=== PATIENT | male | born 1955 | race Caucasian/White ===

== ENCOUNTER 2019-04-20 06:04 | Day surgery (SDC) | payer BC ==
[2019-04-20] MEDS ORDERED: fentaNYL 100 MCG/2 ML SDV ONE (07:00)
[2019-04-20] MEDS ORDERED: Midazolam 1 MG/ML 2 ML SDV ONE (07:00)
[2019-04-20] MEDS ORDERED: Propofol 200 MG/20 ML SDV ONE (07:00)
[2019-04-20] MEDS: Dextrose 5%-Lactated Ringers 1,000 ML IV SCH (07:04)
[2019-04-20] MEDS: Pantoprazole 40 MG Vial IVPUSH ONE (07:49)
[2019-04-20 09:22] VITALS: BP 123/77
--- NOTE | 2019-04-26 14:05 | OR ---
DATE OF PROCEDURE: 04/20/2019 PREOPERATIVE DIAGNOSIS: Recurrent gastroesophageal reflux disease symptoms, status post previous Ramirez fundoplication. POSTOPERATIVE DIAGNOSES: 1. Recurrent hiatal hernia (4 cm) associated with recurrent gastroesophageal reflux disease. 2. Mild antral gastritis. OPERATIVE PROCEDURES: Esophagogastroduodenoscopy with, 1. Biopsies of esophagogastric junction for histologic evaluation. 2. Biopsies of antrum for CLOtest. ANESTHESIA: IV sedation. INDICATION FOR PROCEDURE: This is a 64-year-old several years status post a Ramirez fundoplication, presenting with some recurrent reflux symptoms. The plan is to proceed with upper GI endoscopy for diagnostic purposes. Potential risks including bleeding and perforation were discussed, and the patient wishes to proceed. DETAILS OF PROCEDURE: The patient was taken to the operating room and placed in a left lateral decubitus position. IV sedation was administered, after which, the upper GI endoscope was passed orally through the length of the esophagus and into the stomach with retroflexion view of the fundus, and thereafter through the pyloric channel and into the proximal duodenum. Findings included normal hypopharynx, larynx, upper esophageal sphincter, and esophageal body. At the EG junction, the patient appeared to have a recurrence of the hiatal hernia. This was confirmed at the point of time of retroflexion of the scope within the stomach. It appeared to be roughly 4 cm. It would appear that the overall wrap around the esophagus was still present, but the entire process had prolapsed with recurrence of the diaphragmatic hernia. This was associated with some mild inflammation at the EG junction area, but without erosions or ulcers. There were no signs of any plaquing or suggestion of neoplastic change. Within the remainder of the stomach, there was patchy redness in the antrum. Otherwise, the visualized portion of the duodenum and pyloric channel were unremarkable. At this point, biopsies were obtained from the antrum and sent for CLOtest for H. pylori. Multiple biopsies were then obtained from esophagogastric junction after which the scope was withdrawn. There were no evident complications. At this point, we will have the patient start Protonix 40 mg daily. He will be also given Protonix 40 mg IV in the recovery room. We will see him back in 3 weeks to see how the PPI agent is helping with regard to his symptoms. Chao Chaudhry MD /[id number]
== END 2019-04-20 09:30 | disposition home or self-care (01) ==
LOC: JP.SDS 06:04
PROVIDERS: ATTEND Surgery
DX: K29.50 Unspecified chronic gastritis without bleeding (principal); K31.89 Other diseases of stomach and duodenum; K21.9 Gastro-esophageal reflux disease without esophagitis; K44.9 Diaphragmatic hernia without obstruction or gangrene; E78.00 Pure hypercholesterolemia, unspecified; I63.9 Cerebral infarction, unspecified; Z95.0 Presence of cardiac pacemaker; Z88.1 Allergy status to other antibiotic agents; Z88.8 Allergy status to other drugs, medicaments and biological substances
CPT/HCPCS: 87081; 88305; C9113; J2250; J2704; J3010; J7042

== ENCOUNTER 2019-05-01 20:50 | Emergency (ER) | payer BC ==
[2019-05-01 21:03] VITALS: BP 143/88
--- NOTE | 2019-05-01 21:25 | EDM.PDOC ---
ED HPI GENERAL MEDICAL PROBLEM - General Chief Complaint: Bite:Animal, Insect Stated Complaint: TICK BITE Time Seen by Provider: 05/01/19 21:28 Source of Information: Reports: Patient History Limitations: Reports: No Limitations - History of Present Illness INITIAL COMMENTS - FREE TEXT/NARRATIVE: pt arrived with a head of a small tick in the left inner thigh. He is not sure how long it has been there. He tried to remove it and the head is stuck int ehe area. Onset: Gradual Duration: Hour(s): Location: Reports: Lower Extremity, Left Associated Symptoms: Reports: No Other Symptoms - Related Data Allergies Allergy/AdvReac Type Severity Reaction Status Date / Time doxycycline Allergy Nausea Verified 05/01/19 21:04 venlafaxine Allergy Facial Verified 05/01/19 21:04 Swelling Home Meds: Home Meds Cholecalciferol (Vitamin D3) [D3-2000] 1,000 units PO DAILY 06/21/16 [History] Citalopram [Celexa] 40 mg PO DAILY 06/21/16 [History] Cyanocobalamin (Vitamin B-12) [Liquid B-12] 1,000 mcg PO DAILY 06/21/16 [History ] Flaxseed Oil [Flaxseed] 1,000 mg PO BID 06/21/16 [History] Ginseng 500 mg PO DAILY 06/21/16 [History] Multivitamin [Multi-Vitamin Daily] 1 tab PO DAILY 06/21/16 [History] [place]'s Wort 300 mg PO BID 06/21/16 [History] Pantoprazole [ProTONIX] 40 mg PO DAILY 11/15/16 [History] Aspirin 325 mg PO DAILY 04/18/19 [History] Lactobacillus Acidophilus [Probiotic] 1 tab PO DAILY 04/18/19 [History] Lisinopril [Prinivil] 30 mg PO DAILY 04/18/19 [History] buPROPion HCl [Bupropion Xl] 450 mg PO DAILY 04/18/19 [History] Past Medical History HEENT History: Reports: Impaired Vision Other HEENT History: wears glasses Cardiovascular History: Reports: High Cholesterol, Hypertension Respiratory History: Reports: Sleep Apnea Gastrointestinal History: Reports: GERD Other Gastrointestinal History: "difficulty swallowing" Genitourinary History: Reports: None Neurological History: Reports: Migraines, TIA Psychiatric History: Reports: Depression Endocrine/Metabolic History: Reports: Obesity/BMI 30+ Hematologic History: Reports: None Immunologic History: Reports: None Oncologic (Cancer) History: Reports: None Dermatologic History: Reports: None - Infectious Disease History Infectious Disease History: Reports: Chicken Pox, Measles, Mumps - Past Surgical History HEENT Surgical History: Reports: None Cardiovascular Surgical History: Reports: None Respiratory Surgical History: Reports: None GI Surgical History: Reports: EGD Neurological Surgical History: Reports: None Social & Family History - Family History Family Medical History: Noncontributory HEENT: Reports: None Cardiac: Reports: None Respiratory: Reports: None GI: Reports: None : Reports: None OBGYN: Reports: None Musculoskeletal: Reports: None - Tobacco Use Smoking Status *Q: Never Smoker - Caffeine Use Caffeine Use: Reports: Soda, Tea Other Caffeine Use: CAFFEINE TABLETS - Recreational Drug Use Recreational Drug Use: No ED ROS GENERAL - Review of Systems Review Of Systems: See Below Constitutional: Reports: No Symptoms HEENT: Reports: No Symptoms Respiratory: Reports: No Symptoms Endocrine: Reports: No Symptoms GI/Abdominal: Reports: No Symptoms : Reports: No Symptoms Musculoskeletal: Reports: Other ( tick bite in the inner thigh of the left leg. ) Skin: Reports: No Symptoms ED EXAM, ANIMAL BITE - Physical Exam Exam: See Below Text/Narrative:: pt has the head of a very small tick stuck in the inner thigh of the left leg. They were able to remove all but the head. Exam Limited By: No Limitations General Appearance: Alert, Anxious Extremities: Other ( The area was cleansed and with a sliver forceps the head was removed. ) Neurological: Alert, Oriented, Normal Cognition Course - Vital Signs Last Recorded V/S: Last Vital Signs Temp 36.8 C 05/01/19 21:04 Pulse 91 05/01/19 21:04 Resp 16 05/01/19 21:04 BP 143/88 H 05/01/19 21:04 Pulse Ox 92 L 05/01/19 21:04 Departure - Departure Time of Disposition: 21:23 Disposition: Home, Self-Care 01 Condition: Fair Clinical Impression: Tick bite - Discharge Information Instructions: Tick Bite Information, Adult, [id number] Referrals: Capo Vasquez MD [Primary Care Provider] - Forms: ED Department Discharge Care Plan Goals: use bacatracin on the bite site, since pt is allergic to doxycyline use amoxicillin 500mg tid for 4 days.
== END 2019-05-01 21:39 | disposition home or self-care (01) ==
LOC: JP.ED 20:50
DX: S70.362A Insect bite (nonvenomous), left thigh, initial encounter (principal); E78.00 Pure hypercholesterolemia, unspecified; I10 Essential (primary) hypertension; F32.9 Major depressive disorder, single episode, unspecified; W57.XXXA Bitten or stung by nonvenomous insect and other nonvenomous arthropods, initial encounter; Z79.899 Other long term (current) drug therapy; Z88.8 Allergy status to other drugs, medicaments and biological substances; Z88.1 Allergy status to other antibiotic agents
CPT/HCPCS: 99282

== ENCOUNTER 2020-01-13 11:38 | Emergency (ER) | payer BC ==
[2020-01-13 11:51] VITALS: BP 119/70; PULSE 91
--- NOTE | 2020-01-13 12:08 | EDM.PDOC ---
ED HPI GENERAL MEDICAL PROBLEM - General Chief Complaint: Respiratory Problem Stated Complaint: POSSIBLE PNEUMONIA Time Seen by Provider: 01/13/20 12:01 Source of Information: Reports: Patient, Family, Old Records, RN Notes Reviewed History Limitations: Reports: No Limitations - History of Present Illness INITIAL COMMENTS - FREE TEXT/NARRATIVE: 64-year-old gentleman presents emergency department a complaint of cough and shortness of breath, he states his been ill for about 10 days he did not get a flu shot this year was evaluated in the clinic 3 days prior and thought to have viral illness. He has had fevers at home does produce sputum no chest pain no nausea vomiting no diaphoresis - Related Data Allergies Allergy/AdvReac Type Severity Reaction Status Date / Time doxycycline Allergy Nausea Verified 01/13/20 11:51 venlafaxine Allergy Facial Verified 01/13/20 11:51 Swelling Home Meds: Home Meds Cholecalciferol (Vitamin D3) [D3-2000] 1,000 units PO DAILY 06/21/16 [History] Citalopram [Celexa] 40 mg PO DAILY 06/21/16 [History] Cyanocobalamin (Vitamin B-12) [Liquid B-12] 1,000 mcg PO DAILY 06/21/16 [History ] Flaxseed Oil [Flaxseed] 1,000 mg PO BID 06/21/16 [History] Ginseng 500 mg PO DAILY 06/21/16 [History] Multivitamin [Multi-Vitamin Daily] 1 tab PO DAILY 06/21/16 [History] [place]'s Wort 300 mg PO BID 06/21/16 [History] Pantoprazole [ProTONIX] 40 mg PO DAILY 11/15/16 [History] Aspirin 325 mg PO DAILY 04/18/19 [History] Lactobacillus Acidophilus [Probiotic] 1 tab PO DAILY 04/18/19 [History] buPROPion HCl [Bupropion Xl] 450 mg PO DAILY 04/18/19 [History] lisinopriL [Prinivil] 30 mg PO DAILY 04/18/19 [History] Albuterol Sulfate [Albuterol Sulfate Hfa] 18 gm IH Q2H PRN #1 hfa.aer.ad [Rx] Azithromycin [Zithromax] 250 mg PO DAILY #6 tab 01/13/20 [Rx] Past Medical History HEENT History: Reports: Impaired Vision Other HEENT History: wears glasses Cardiovascular History: Reports: High Cholesterol, Hypertension Respiratory History: Reports: Sleep Apnea Gastrointestinal History: Reports: GERD Other Gastrointestinal History: "difficulty swallowing" Neurological History: Reports: Migraines, TIA Psychiatric History: Reports: Depression Endocrine/Metabolic History: Reports: Obesity/BMI 30+ Hematologic History: Reports: None Immunologic History: Reports: None Oncologic (Cancer) History: Reports: None Dermatologic History: Reports: None - Infectious Disease History Infectious Disease History: Reports: Chicken Pox, Measles, Mumps - Past Surgical History HEENT Surgical History: Reports: None Cardiovascular Surgical History: Reports: None Respiratory Surgical History: Reports: None GI Surgical History: Reports: EGD Neurological Surgical History: Reports: None Social & Family History - Family History Family Medical History: Noncontributory HEENT: Reports: None Cardiac: Reports: None Respiratory: Reports: None GI: Reports: None : Reports: None OBGYN: Reports: None Musculoskeletal: Reports: None - Tobacco Use Smoking Status *Q: Never Smoker - Caffeine Use Caffeine Use: Reports: Soda, Tea Other Caffeine Use: CAFFEINE TABLETS ED ROS GENERAL - Review of Systems Review Of Systems: See Below Constitutional: Reports: Fever, Chills HEENT: Reports: No Symptoms Respiratory: Reports: Shortness of Breath, Wheezing, Cough, Sputum Cardiovascular: Reports: Dyspnea on Exertion GI/Abdominal: Reports: No Symptoms ED EXAM, GENERAL - Physical Exam Exam: See Below Exam Limited By: No Limitations General Appearance: Alert, WD/WN, No Apparent Distress Eye Exam: Bilateral Eye: Normal Inspection Ears: Normal External Exam, Normal Canal, Hearing Grossly Normal, Normal TMs Nose: Normal Inspection, Normal Mucosa, No Blood Throat/Mouth: Normal Inspection, Normal Lips, Normal Teeth, Normal Gums, Normal Oropharynx, Normal Voice, No Airway Compromise Head: Atraumatic, Normocephalic Neck: Normal Inspection, Supple, Non-Tender, Full Range of Motion Respiratory/Chest: No Respiratory Distress, No Accessory Muscle Use, Rhonchi, Wheezing Cardiovascular: Regular Rate, Rhythm, No Murmur Course - Vital Signs Last Recorded V/S: Last Vital Signs Temp 97.8 F 01/13/20 11:58 Pulse 91 01/13/20 11:58 Resp 18 01/13/20 11:58 BP 119/70 01/13/20 11:58 Pulse Ox 93 L 01/13/20 11:58 - Orders/Labs/Meds Orders: Active Orders 24 hr Category Date Time Status RT Aerosol Therapy [RC] ASDIRECTED Care 01/13/20 13:02 Active Chest 2V [CR] Urgent Exams 01/13/20 12:05 Taken Labs: Laboratory Tests 01/13/20 01/13/20 01/13/20 Range/Units 12:15 12:15 12:15 WBC 25.0 H (4.5-11.0) K/uL RBC 5.18 (4.30-5.90) M/uL Hgb 14.5 D (12.0-15.0) g/dL Hct 43.9 (40.0-54.0) % MCV 85 (80-98) fL MCH 28 (27-31) pg MCHC 33 (32-36) % Plt Count 387 (150-400) K/uL Neut % (Auto) 82 H (36-66) % Lymph % (Auto) 9 L (24-44) % [place] % (Auto) 8 H (2-6) % Eos % (Auto) 1 L (2-4) % Baso % (Auto) 0 (0-1) % Sodium 141 (140-148) mmol/L Potassium 4.2 (3.6-5.2) mmol/L Chloride 104 (100-108) mmol/L Carbon Dioxide 26 (21-32) mmol/L Anion Gap 11.3 (5.0-14.0) mmol/L BUN 22 H (7-18) mg/dL Creatinine 1.4 H (0.8-1.3) mg/dL Est Cr Clr Drug Dosing 52.25 mL/min Estimated GFR (MDRD) 51 L (>60) Glucose 96 (74-106) mg/dL Calcium 8.5 (8.5-10.1) mg/dL Total Bilirubin 0.6 (0.2-1.0) mg/dL AST 23 (15-37) U/L ALT 54 (12-78) U/L Alkaline Phosphatase 144 H (46-116) U/L Troponin I < 0.017 (0.000-0.056) ng/mL Total Protein 7.1 (6.4-8.2) g/dL Albumin 3.0 L (3.4-5.0) g/dL Globulin 4.1 H (2.3-3.5) g/dL Albumin/Globulin Ratio 0.7 L (1.2-2.2) Meds: Medications Discontinued Medications Generic Name Dose Route Start Last Admin Trade Name Freq PRN Reason Stop Dose Admin Albuterol/Ipratropium 3 ml 01/13/20 13:02 01/13/20 13:08 Duoneb 3.0-0.5 Mg/3 Ml NEB 01/13/20 13:03 3 ml ONETIME ONE Administration Departure - Departure Time of Disposition: 13:19 Disposition: Home, Self-Care 01 Condition: Fair Clinical Impression: Community acquired pneumonia Qualifiers: Laterality: unspecified laterality Qualified Code(s): J18.9 - Pneumonia, unspecified organism - Discharge Information Prescriptions: Albuterol Sulfate [Albuterol Sulfate Hfa] 18 gm IH Q2H PRN #1 hfa.aer.ad PRN Reason: Dyspnea Azithromycin [Zithromax] 250 mg PO DAILY #6 tab Instructions: Community-Acquired Pneumonia, Adult Referrals: Capo Vasquez MD [Primary Care Provider] - Forms: ED Department Discharge Additional Instructions: Take full course of antibiotics, use albuterol inhaler as needed for shortness of breath, please followup with your primary care provider in 3-5 days if not better, please call return to the emergency department with worsening of symptoms. Sepsis Event Note - Evaluation Sepsis Screening Result: Possible Sepsis Risk - Focused Exam Vital Signs: Vital Signs Temp Pulse Resp BP Pulse Ox 01/13/20 11:58 97.8 F 91 18 119/70 93 L 01/13/20 11:49 97.8 F 91 18 119/70 93 L Date Exam was Performed: 01/13/20 Time Exam was Performed: 13:19 - My Orders Last 24 Hours: My Active Orders 01/13/20 12:05 Chest 2V [CR] Urgent 01/13/20 13:02 RT Aerosol Therapy [RC] ASDIRECTED - Assessment/Plan Last 24 Hours: My Active Orders 01/13/20 12:05 Chest 2V [CR] Urgent 01/13/20 13:02 RT Aerosol Therapy [RC] ASDIRECTED Plan: Assessment Acuity = acute Site and laterality = community-acquired pneumonia Etiology = probable underlying bacterial cause Manifestations = cough, fever Location of injury = Home Lab values = WBC elevated at 25.0 consistent with leukocytosis, creatinine elevated 1.4 consistent with acute renal failure stage G3 B, troponin is negative, chest x-ray I did review films myself I cannot appreciate any acute process, the official read from radiology is pending Plan Started empiric antibiotics of azithromycin followed by albuterol inhaler his curb 65 score is 1 which places him at low risk, I am follow-up with his primary care in 3 to 5 days for further evaluation if not better This note was dictated using [employer] voice recognition software please call with any questions on syntax or grammar.
[2020-01-13] MEDS ORDERED: Albuterol/Ipratropium 3.0-0.5 MG/3 ML Neb Soln NEB ONE (13:02)
--- NOTE | 2020-01-15 09:35 | CR ---
CHEST: 2 view CLINICAL HISTORY:Cough and fever COMPARISON:None FINDINGS: The heart size, pulmonary vascular and hilar structures are normal. No infiltrate effusion or pneumothorax is seen. There is minimal patchy density in both lung bases which is likely chronic. IMPRESSION: No acute cardiopulmonary process. If clinical symptomatology persists or worsens a repeat exam should be considered.
== END 2020-01-13 13:33 | disposition home or self-care (01) ==
LOC: JP.ED 11:38
DX: J18.9 Pneumonia, unspecified organism (principal); E78.00 Pure hypercholesterolemia, unspecified; I10 Essential (primary) hypertension; K21.9 Gastro-esophageal reflux disease without esophagitis; E66.9 Obesity, unspecified; Z88.1 Allergy status to other antibiotic agents; Z79.899 Other long term (current) drug therapy; Z79.82 Long term (current) use of aspirin; Z68.30 Body mass index [BMI] 30.0-30.9, adult
CPT/HCPCS: 36415; 71046; 71046-26; 80053; 84484; 85025; 87804; 87804-59; 94640; 99285-25; J7620-GY